=== PATIENT | male | born 1945 | race Caucasian/White ===

== ENCOUNTER 2018-10-20 06:15 | Day surgery (SDC) | payer MEDICARE, OTHER ==
[~2018-10-20] VITALS: Ht 172.7 cm; Wt 84.6 kg
[2018-10-20] VITALS (11 sets, daily range): BP systolic 118–165; BP diastolic 63–100
[2018-10-20] MEDS ORDERED: normal saline 1,000 ML IV SCH (06:40)
[2018-10-20] MEDS ORDERED: diphenhydrAMINE 25mg capsule PO PRN (06:40)
[2018-10-20] MEDS ORDERED: ROSU20TA2 PO (06:44)
[2018-10-20] MEDS ORDERED: LISI-600 PO (06:44)
[2018-10-20] MEDS ORDERED: CARV3.122 PO (06:44)
[2018-10-20 07:26] LABS: ALBUMIN 3.8 G/DL (3.4-5.0); ANION GAP 8 (8-16); BLOOD UREA NITROGEN 24 MG/DL (7-18); BUN/CREATININE RATIO 18.5 (5.4-32.0); CHLORIDE 104 MMOL/L (99-107); GLUCOSE 118 MG/DL (70-104); MAGNESIUM 2.2 MG/DL (1.5-2.4); SODIUM 138 MMOL/L (135-145); TOTAL CARBON DIOXIDE 25.7 MMOL/L (24-32); eGFR 54 ML/MIN
[2018-10-20 07:28] LABS: BASOPHILS # (AUTO) 0.1 X10'3 (0-0.2); BASOPHILS % (AUTO) 0.9 % (0-1); EOSINOPHILS # (AUTO) 0.3 X10'3 (0-0.9); EOSINOPHILS % (AUTO) 4.8 % (0-6); HEMATOCRIT 43.1 % (42.0-52.0); HEMOGLOBIN 14.5 g/dl (14.0-17.9); LYMPHOCYTES # (AUTO) 1.8 X10'3 (1.1-4.8); MEAN CORPUSCULAR HEMOGLOBIN 30.6 PG (27.0-31.0); MEAN CORPUSCULAR HGB CONC 33.6 g/dL (33.0-36.5); MEAN CORPUSCULAR VOLUME 91.1 FL (78-98); MEAN PLATELET VOLUME 7.4 FL (7.4-10.4); MONOCYTES # (AUTO) 0.7 X10'3 (0-0.9); MONOCYTES % (AUTO) 11.2 % (2-12); NEUTROPHILS # (AUTO) 3.5 X10'3 (1.8-7.7); NEUTROPHILS % (AUTO) 55.1 % (42-75); PLATELET COUNT 291 X10'3 (140-440); RED BLOOD COUNT 4.73 X10'6 (4.70-6.10); RED CELL DISTRIBUTION WIDTH 14.5 % (11.5-14.5); WHITE BLOOD COUNT 6.3 X10'3 (4.5-11.0)
[2018-10-20] MEDS ORDERED: iohexol 350 MG/ML 50ML vial IV ONE (07:36)
[2018-10-20] MEDS ORDERED: LIDOcaine 1% (10mg/ml)w/preservative injection 20ml MDV ONE (07:36)
[2018-10-20] MEDS ORDERED: iohexol 350MG/ML 100ml bottle IV ONE ×2 (07:36→08:11)
[2018-10-20] MEDS ORDERED: fentaNYL/PF 50MCG/1 ML 2ML syringe ONE (07:38)
[2018-10-20] MEDS ORDERED: midazolam 2 mg/2 ml injection ONE ×2 (07:38→07:59)
[2018-10-20] MEDS ORDERED: heparin 1,000unit/ml 10ml vial 10 ML ONE (08:11)
[2018-10-20] MEDS ORDERED: aspirin 81mg tab.chew ONE (08:28)
[2018-10-20] MEDS ORDERED: clopidogrel 300mg tablet ONE (08:28)
== END 2018-10-20 12:32 | disposition home or self-care (01) ==
LOC: SSTAY O 06:15
PROVIDERS: ATTEND Internal Medicine Cardiovascular Disease
DX: I25.10 Atherosclerotic heart disease of native coronary artery without angina pectoris (principal); I25.82 Chronic total occlusion of coronary artery; G47.30 Sleep apnea, unspecified; I10 Essential (primary) hypertension; Z87.891 Personal history of nicotine dependence
CPT/HCPCS: 36415; 80048; 83735; 85025; 85610; 93005; 93458; 99152; 99153; A6257; C1769; C1874; C1894; C9600; C9601; J1644; J2001; J2250; J3010; J7030; Q0163; Q9967; A4620; C1760